=== PATIENT | female | born 1985 | race African-American/Black ===

== ENCOUNTER 2023-04-15 10:45 | Emergency (ER) | payer BC ==
[2023-04-15 10:57] VITALS: BP 107/76; PULSE 77; RESP 20; TEMP 97.8; BMI 27.8
[2023-04-15 12:30] LABS: BASO % 0.6 % (0-2.0); EOS % 2.7 % (0-4.5); HEMATOCRIT 41.6 % (32.4-45.2); HEMOGLOBIN 13.9 GM/dL (10.7-15.3); LYMPH % 27.1 % (8-40); MCH 30.7 pg (25.7-33.7); MCHC 33.5 g/dl (32.0-36.0); MEAN CELL VOLUME 91.4 fl (80-96); MEAN PLT VOLUME 7.7 fl (7.5-11.1); MONO % 6.3 % (3.8-10.2); NEUT % 63.3 % (42.8-82.8); PLATELET COUNT 410 10^3/uL (134-434); RBC 4.55 M/mm3 (3.60-5.2); RDW 12.8 % (11.6-15.6)
[2023-04-15 12:38] LABS: EPI CELLS 9 /uL (0-25.1); HYALINE CASTS 1 /uL (0-3.1); URINE APPEARANCE CLEAR; URINE BACTERIA 524 /uL (0-1359); URINE BILIRUBIN NEGATIVE (NEGATIVE); URINE COLOR YELLOW; URINE GLUCOSE (UA) NEGATIVE (NEGATIVE); URINE KETONE NEGATIVE (NEGATIVE); URINE LEUK ESTERASE NEGATIVE (NEGATIVE); URINE NITRITE NEGATIVE (NEGATIVE); URINE PROTEIN NEGATIVE (NEGATIVE); URINE RBC 49 /uL (0-23.9); URINE UROBILINOGEN 0.2 mg/dL (0.2-1.0); URINE WBC 28 /uL (0-25.8)
[2023-04-15 12:51] LABS: POTASSIUM 4.3 mmol/L (3.5-5.1)
[2023-04-15 12:52] LABS: CALCIUM 9.1 mg/dL (8.5-10.1)
[2023-04-15 12:53] LABS: BLOOD UREA NITROGEN 8.4 mg/dL (7-18)
[2023-04-15 12:56] LABS: CREATININE 0.8 mg/dL (0.55-1.3)
[2023-04-15 12:58] LABS: BILIRUBIN,TOTAL 0.6 mg/dL (0.2-1); TOT PROT 7.9 g/dl (6.4-8.2)
== END 2023-04-15 17:26 | disposition home or self-care (01) ==
LOC: JERFT 10:45 → JER 10:45 → JERFT 17:26
DX: O20.9 Hemorrhage in early pregnancy, unspecified (principal); Z3A.01 Less than 8 weeks gestation of pregnancy
CPT/HCPCS: 36415; 76817-TC; 80053; 81003; 84702; 85025; 86850; 86900; 86901; 87086; 99284-25